=== PATIENT | male | born 1980 | race Caucasian/White ===

== ENCOUNTER 2020-02-23 05:53 | Emergency (ER) | payer OTHER ==
[~2020-02-23] VITALS: Ht 177.8 cm; Wt 120.5 kg
--- NOTE | 2020-02-23 06:24 | NUR ---
PT IN GOWN IN [facility] WITH ERP AT . PT VERBALIZES UNDERSTANDING OF POC. CALL LIGHT WITHIN REACH AT THIS TIME. PT ON CARDIAC AND VS MONITORS AT THIS TIME.
--- NOTE | 2020-02-23 06:51 | NUR ---
REPORT FROM EMIR PATEL. PATIENT IN BED, ON MONITOR.
--- NOTE | 2020-02-23 06:58 | NUR ---
REPORT OF PT TO FABIENNE AT THIS TIME. ALL QUESTIONS ANSWERED.
[2020-02-23 07:12] VITALS: BP 148/98
== END 2020-02-23 07:14 | disposition home or self-care (01) ==
LOC: ED 06:20
DX: R41.1 Anterograde amnesia (principal); R00.2 Palpitations; R42 Dizziness and giddiness; R94.31 Abnormal electrocardiogram [ECG] [EKG]
CPT/HCPCS: 93005; 99283

== ENCOUNTER 2020-03-17 14:50 | Emergency (ER) | payer OTHER ==
[~2020-03-17] VITALS: Ht 177.8 cm; Wt 119.7 kg
--- NOTE | 2020-03-17 16:01 | NUR ---
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 NO ACUTE DISTRESS NOTED.
[2020-03-17] MEDS ORDERED: HYDR50TA99 PO (16:48)
[2020-03-17] MEDS ORDERED: BUSP5TAB2 PO (16:48)
--- NOTE | 2020-03-17 16:54 | NUR ---
ERP WAS IN TO SPEAK WITH PT. PT STATES HE FEELS CALM NOW, DECLINES ANY MEDICATION. PLAN TO SPEAK WITH PSYCH EXPLOSIVE OPERATOR GRENADE ABOUT SWITCHING TO XANAX INSTEAD OF ATARAX.
--- NOTE | 2020-03-17 17:12 | NUR ---
PSYCH BRIDGE PAINTER HELPER AT BS TALKING WITH PT AT THIS TIME.
[2020-03-17] MEDS ORDERED: SERTRALINE 50MG TABLET PO ONE (17:30)
[2020-03-17] MEDS ORDERED: SERTRALINE 50MG TABLET ONE (17:37)
[2020-03-17 17:43] VITALS: BP 134/77
--- NOTE | 2020-03-17 17:45 | NUR ---
PT MEDICATED PER ORDERS. D/C INSTRUCTIONS, MEDS & F/U APPT RV'WD WITH PT, HE VERBALIZES UNDERSTANDING. RX GIVEN X2. PT AMBULATED OUT OF ED WITHOUT DIFFICULTY.
== END 2020-03-17 17:51 | disposition home or self-care (01) ==
LOC: ED 16:58
DX: F41.1 Generalized anxiety disorder (principal); R00.2 Palpitations; R42 Dizziness and giddiness; R20.0 Anesthesia of skin; G89.29 Other chronic pain
CPT/HCPCS: 93005; 99283